=== PATIENT | female | born 1990 | race Caucasian/White ===

== ENCOUNTER 2019-09-01 13:49 | Inpatient (IN) | payer OTHER ==
[2019-09-01] MEDS ORDERED: CARBOPROST TROMETHAMINE 250 MCG/ML 1 ML AMP IM PRN (14:09)
[2019-09-01] MEDS ORDERED: OXYTOCIN 10 UNIT/ML 1 ML VIAL IM PRN (14:09)
[2019-09-01] MEDS ORDERED: LIDOCAINE 0.5% (PF) 5 MG/ML (50 ML SDV) SQ PRN (14:09)
[2019-09-01] MEDS ORDERED: METHYLERGONOVINE 0.2 MG/ML 1 ML AMP IM PRN (14:09)
[2019-09-01] MEDS ORDERED: TERBUTALINE 1 MG/ML VIAL SQ PRN (14:09)
[2019-09-01] MEDS ORDERED: OXYTOCIN 30 UNITS/500 ML NS 30 UNIT in SALINE 1 500ML.BAG IV SCH (14:15)
[2019-09-01] MEDS: LACTATED RINGERS 1,000 ML IV SCH ×3 (14:26→21:35)
[2019-09-01 14:32] LABS: Basophils % (A) 0 %; Eosinophils # (A) 0.1 k/uL (0-0.7); Eosinophils % (A) 1 %; HCT 34.9 % (34.0-46.0); HGB 11.6 gm/dL (11.4-16.0); Lymphocytes # (A) 1.5 k/uL (1.0-4.8); Lymphocytes % (A) 22 %; MCH 29.5 pg (25.0-35.0); MCHC 33.3 g/dL (31.0-37.0); MCV 88.6 fL (80.0-100.0); Mean Platelet Volume 9.1; Monocytes # (A) 0.5 k/uL (0-1.0); Monocytes % (A) 7 %; Neutrophils # (A) 4.5 k/uL (1.3-7.7); Neutrophils % (A) 67 %; Platelet Count 193 k/uL (150-450); RBC 3.94 m/uL (3.80-5.40); RDW 13.8 % (11.5-15.5); WBC 6.7 k/uL (3.8-10.6)
[2019-09-01 14:35] LABS: Appearance,Urine Clear (Clear); Bilirubin,Urine Negative (Negative); Blood,Urine Small (Negative); Color,Urine Light Yellow; Glucose,Urine (UA) Negative (Negative); Ketones,Urine Negative (Negative); Leukocyte Esterase,Urine Negative (Negative); Nitrite,Urine Negative (Negative); Protein,Urine Negative (Negative); RBC,Urine 3 /hpf (0-5); Specific Gravity,Urine 1.004 (1.001-1.035); Squamous Epithelial Cell,Urine 1 /hpf (0-4); Urobilinogen,Urine <2.0 mg/dL (<2.0); WBC,Urine <1 /hpf (0-5)
[2019-09-01 14:39] LABS: ALT 10 U/L (4-34); AST 22 U/L (14-36); African American GFR (CKD) >90 (>60 ml/min/1.73 sqM); Blood Urea Nitrogen 8 mg/dL (7-17); LDH 419 U/L (313-618); Non-African American GFR(CKD) >90 (>60 ml/min/1.73 sqM); Uric Acid 4.5 mg/dL (3.7-7.4)
[2019-09-01 14:43] LABS: INR 0.9 (<1.2); Partial Thromboplastin Time 22.3 sec (22.0-30.0); Prothrombin Time 9.3 sec (9.0-12.0)
[2019-09-01 14:47] LABS: Protein/Creatinine Ratio,Urine 0.628
[2019-09-01] MEDS ORDERED: BUTORPHANOL 1 MG/ML 1 ML VIAL IV PRN (16:26)
--- NOTE | 2019-09-01 16:29 | P.HPOB ---
History of Present Illness H&P Date: 09/01/19 Chief Complaint: Elevated blood pressures at 38-5/7 weeks This is a 28-year-old 2 para 1001 woman with an estimated due date of 09/10/2019 based on LMP consistent with first trimester ultrasound. She presented for routine visit today and was found to have blood pressure of 150/90, repeat 150/80. She has been experiencing significant increase in lower extremity swelling over the last 2 weeks however previously her blood pressures were normal. She also reports mild headache over the last 24 hours, decreased appetite and nausea. For this reason she is admitted for induction of labor and rule out preeclampsia. She denies headaches or visual changes. Denies upper abdominal pain or reflux. Good movement. Irregular contractions. Denies vaginal bleeding or leakage of fluids. has been otherwise unremarkable. She has a history of hypothyroidism and B12 deficiency. She has sciatic pain. Obstetric history significant for term normal spontaneous vaginal delivery in 2010 of a 7 lbs. 7 oz. female Laboratory data: Blood type O positive, antibody screen negative, rubella immune, VDRL nonreactive, hep Jennifer surface antigen negative, HIV negative, gonorrhea clinic cultures negative, 3 hour glucose tolerance testing within norm al limits, group B strep negative. Review of Systems All systems: negative Past Medical History Past Medical History: Thyroid Disorder Additional Past Medical History / Comment(s): Hypothyroid History of Any Multi-Drug Resistant Organisms: None Reported Additional Past Surgical History / Comment(s): wisdome teeth removed, no complications Past Anesthesia/Blood Transfusion Reactions: No Reported Reaction Past Psychological History: Anxiety Additional Psychological History / Comment(s): no meds Smoking Status: Never smoker - Past Family History Mother Family Medical History: Thyroid Disorder Father Family Medical History: Hypertension Medications and Allergies Home Medications Medication Instructions Recorded Confirmed Type Pnv No.95/Ferrous Fum/Folic AC 1 each PO DAILY 09/01/19 09/01/19 History [ Multivitamin Tablet] Thyroid,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 HEENT exam is unremarkable. Her breathing is unlabored and her heart is a regular rate and rhythm. The abdomen is gravid, soft and nontender with estimated weight of approximatey 8 pounds. She has 3+ bilateral lower extremity pitting edema. Deep tendon reflexes in the office were 2+ with no clonus. On pelvic examination her cervix is 3-1/2 cm dilated, 60% effaced and the vertex in the -3 station. Artificial rupture of membranes is undertaken and copious clear fluid is noted. Results Result Diagrams: 09/01/19 14:10 09/01/19 14:10 Abnormal Lab Results - Last 24 Hours (Table) 09/01/19 09/01/19 Range/Units 14:10 14:10 Creatinine 0.44 L (0.52-1.04) mg/dL Urine Blood Small H (Negative) Assessment and Plan (1) Term Current Visit: Yes Status: Acute Code(s): Z34.90 - ENCNTR FOR SUPRVSN OF NORMAL , UNSP, UNSP TRIMESTER SNOMED Code(s): 59691754 (2) induced hypertension Current Visit: Yes Status: Acute Code(s): O13.9 - GESTATIONAL HTN W/O SIGNIFICANT PROTEINURIA, UNSP TRIMESTER SNOMED Code(s): 95306974 (3) Hypothyroid in , antepartum Current Visit: Yes Status: Acute Code(s): O99.280 - ENDO, NUTRITIONAL AND METAB DISEASES COMP PREG, UNSP TRI; E03.9 - HYPOTHYROIDISM, UNSPECIFIED SNOMED Code(s): 445914731 Plan: This is 28-year-old 2 para 1 woman admitted at 38-5/7 weeks gestation with elevated blood pressures. On admission her blood pressures on are somewhat improved, 130s over 80s. Preeclampsia labs are all within normal limits. status is currently reassuring with category 1 heart tones. She is rodney every 2-3 minutes with Pitocin induction of labor. She is group B strep negative and Rh+. I anticipate normal spontaneous vaginal delivery. She may have an epidural anesthetic upon request.
[2019-09-01] MEDS ORDERED: SODIUM CHLORIDE 0.9% 100 ML BAG ONE (20:59)
[2019-09-01] MEDS ORDERED: fentaNYL (PF) 50 MCG/ML 5 ML AMP ONE (20:59)
[2019-09-01] MEDS ORDERED: ROPIVACAINE 5MG/ML 20ML VIAL ONE (20:59)
[2019-09-01] MEDS ORDERED: ZOLPIDEM 5 MG TAB PO PRN (23:37)
[2019-09-01] MEDS ORDERED: BENZOCAINE/MENTHOL SPRAY 1 GM/SPRAY AEROSOL TOPICAL PRN (23:37)
[2019-09-01] MEDS ORDERED: LANOLIN CREAM 5 GM TUBE TOPICAL PRN (23:37)
[2019-09-01] MEDS ORDERED: ACETAMINOPHEN TAB 325 MG TAB PO PRN (23:37)
[2019-09-01] MEDS ORDERED: SIMETHICONE 80 MG CHEWABLE PO PRN (23:37)
[2019-09-01] MEDS ORDERED: diphenhydrAMINE 50 MG CAP PO PRN (23:37)
[2019-09-01] MEDS ORDERED: diphenhydrAMINE 50 MG/ML 1 ML VIAL IVP PRN ×2 (23:37)
[2019-09-01] MEDS ORDERED: HYDROCORTISONE 2.5% RECTAL CREAM 30 GM TUBE RECTAL PRN (23:37)
[2019-09-01] MEDS ORDERED: diphenhydrAMINE 25 MG CAP PO PRN (23:37)
--- NOTE | 2019-09-01 23:37 | P.PROBDLV ---
Vaginal Delivery Note - . Vaginal Delivery Note: Findings: Female in the vertex left occiput anterior position with Apgars of 9 at 1 minute and 9 at 5 minutes weighing 6 lbs. 8 oz., 2955 g. Nuchal cord 2. First-degree perineal laceration. EBL 200 mL's. Delivery summary: This is a 28-year-old 2 para 1 woman who is admitted at 38-5/7 weeks gestation with elevated blood pressures in the outpatient setting. Following admission she underwent preeclamptic evaluation and laboratory data was all on negative. She underwent a Pitocin induction of labor with artificial rupture of membranes. She was 3 cm dilated upon admission she progressed to 6 cm dilated and received an epidural anesthetic. She then progressed to complete cervical dilation after an approximately 9 hour first stage of labor. She commenced pushing with excellent maternal effort. She pushed to very rapidly and was repositioned, prepped and draped in the modified Juan M position. With additional maternal effort the head delivered from the left occiput anterior position. Tight nuchal cord 2 was unable to be reduced therefore the was delivered through and the nuchal cords were then reduced once the infant was delivered onto the field. The nose and mouth were bulb suctioned and the was placed on the maternal abdomen. After waiting appropriate. Of time the cord was clamped and cut. Apgars were 9 at 1 minute and 9 at 5 minutes and weight was 6 lbs. 8 oz., 2955 g. An intact, three-vessel cord placenta was expressed rapidly after delivery. Second stage of labor was approximate 7 minutes, third stage of labor was 4 minutes. The perineum was inspected and a first-degree laceration was noted. This was infused with lidocaine and repaired with a single [id number] suture of 3-0 Vicryl. The rest of the vagina and cervix were inspected no further lacerations were noted. The uterus was massaged and was noted to be firm. The patient received Pitocin following the third stage of labor. EBL was 200 mL's. Both mother and infant were doing well post delivery in the room. All counts were correct.
[2019-09-01] MEDS ORDERED: OXYTOCIN 20 UNITS/1000 ML NS 1,000 ML IV SCH (23:45)
[2019-09-02] MEDS: IBUPROFEN 600 MG TAB PO PRN ×4 (01:13→20:13)
[2019-09-02 06:12] LABS: Basophils % (A) 0 %; Eosinophils % (A) 0 %; HCT 28.5 % (34.0-46.0); Lymphocytes # (A) 1.6 k/uL (1.0-4.8); Lymphocytes % (A) 12 %; MCH 31.2 pg (25.0-35.0); MCHC 34.6 g/dL (31.0-37.0); Monocytes # (A) 0.8 k/uL (0-1.0); Monocytes % (A) 6 %; Neutrophils # (A) 10.6 k/uL (1.3-7.7); Neutrophils % (A) 80 %; Platelet Count 191 k/uL (150-450); RBC 3.16 m/uL (3.80-5.40); WBC 13.3 k/uL (3.8-10.6)
[2019-09-02 06:23] LABS: HGB 9.9 gm/dL (11.4-16.0)
[2019-09-02] MEDS: SENNOSIDES-DOCUSATE SODIUM 1 EACH TAB PO SCH ×2 (08:01→20:14)
--- NOTE | 2019-09-02 10:27 | P.PNOBGVD ---
Subjective - Subjective Principal diagnosis: day 1/2 Interval history: Status post approximately 12 hours ago. She is feeling well this morning. She did have some excessive lochia per the RN on throughout the night. Her uterus did remain firm. She received Pitocin intravenously as well as a single dose of IM Methergine. Hemoglobin this morning is 9.9. She reports she is feeling well and is ambulating and voiding without difficulty. She reports a history of excessive vaginal bleeding for the first day after her last vaginal delivery approximate 10 years ago. Patient reports: Reports appetite normal, Reports voiding normally, Reports pain well controlled, Reports ambulating normally, Denies dizzy ambulation, Denies nauseated : doing well, nursing well Objective - Latest Vital Signs Latest vital signs: Vital Signs Temp Pulse Resp BP Pulse Ox 09/02/19 08:00 98.5 F 99 18 129/84 96 09/02/19 03:55 97.9 F 88 16 147/80 98 09/02/19 01:30 97.6 F 98 18 126/77 09/02/19 01:00 97.1 F L 107 H 16 128/76 09/02/19 00:30 95 16 127/61 09/02/19 00:15 96 16 131/60 09/02/19 00:00 97.8 F 96 16 143/63 09/01/19 23:45 96 16 117/66 09/01/19 23:30 97.1 F L 90 16 112/59 98 09/01/19 14:00 98.2 F 115 H 18 136/85 Intake and Output 09/01/19 09/02/19 09/02/19 22:59 06:59 14:59 Intake Total 300 450 Output Total 100 Balance 300 350 Intake: IV 300 250 Oral 200 Output: Urine 100 Other: # Voids 2 - Exam Extremities: Present: edema (3+) Abdomen: Present: normal appearance, soft. Absent: distention, tenderness Uterus: Present: normal, firm. Absent: bogginess, tenderness Comments: Peripad half saturated with dark red blood. No clots expressed with fundal massage. Uterus palpates firm 2 fingerbreadths below the umbilicus. - Labs Labs: Abnormal Lab Results - Last 24 Hours (Table) 09/01/19 09/01/19 09/02/19 Range/Units 14:10 14:10 05:46 WBC 13.3 H (3.8-10.6) k/uL RBC 3.16 L (3.80-5.40) m/uL Hgb 9.9 L D (11.4-16.0) gm/dL Hct 28.5 L (34.0-46.0) % Neutrophils # 10.6 H (1.3-7.7) k/uL Creatinine 0.44 L (0.52-1.04) mg/dL Urine Blood Small H (Negative) Assessment and Plan (1) Term Current Visit: Yes Status: Acute Code(s): Z34.90 - ENCNTR FOR SUPRVSN OF NORMAL , UNSP, UNSP TRIMESTER SNOMED Code(s): 68023439 (2) induced hypertension Current Visit: Yes Status: Acute Code(s): O13.9 - GESTATIONAL HTN W/O SIGNIF ICANT PROTEINURIA, UNSP TRIMESTER SNOMED Code(s): 48666321 (3) Hypothyroid in , antepartum Current Visit: Yes Status: Acute Code(s): O99.280 - ENDO, NUTRITIONAL AND METAB DISEASES COMP PREG, UNSP TRI; E03.9 - HYPOTHYROIDISM, UNSPECIFIED SNOMED Code(s): 318893242 (4) Normal spontaneous vaginal delivery Current Visit: Yes Status: Acute Code(s): O80 - ENCOUNTER FOR FULL-TERM UNCOMPLICATED DELIVERY SNOMED Code(s): 91841077 (5) Nuchal cord Current Visit: Yes Status: Acute Code(s): O69.81X0 - LABOR AND DEL COMP BY CORD AROUND NECK, W/O COMPRSN, UNSP SNOMED Code(s): 373845357 (6) Perineal laceration with delivery, first degree Current Visit: Yes Status: Acute Code(s): O70.0 - FIRST DEGREE PERINEAL LACERATION DURING DELIVERY SNOMED Code(s): 367259596 Plan: day1/2 status post . Recovering well. She is having some heavy lochia however is asymptomatic. By mouth Methergine today and repeat blood counts tomorrow.
[2019-09-02] MEDS: METHYLERGONOVINE 0.2 MG TAB PO SCH ×2 (14:48→22:06)
[2019-09-03 07:56] VITALS: BP 132/86; PULSE 107; RESP 18; TEMP 97.9
--- NOTE | 2019-09-03 08:00 | P.DS ---
Providers Date of admission: 09/01/19 13:49 Expected date of discharge: 09/03/19 Attending physician: Gloria Hunter Primary care physician: Stated None - Discharge Diagnosis(es) (1) Term Current Visit: Yes Status: Acute (2) induced hypertension Current Visit: Yes Status: Acute (3) Hypothyroid in , antepartum Current Visit: Yes Status: Acute (4) Normal spontaneous vaginal delivery Current Visit: Yes Status: Acute (5) Nuchal cord Current Visit: Yes Status: Acute (6) Perineal laceration with delivery, first degree Current Visit: Yes Status: Acute Hospital Course: This is a 28 year old 2 now para 2 woman who is admitted at 38-5/7 weeks gestation for induction of labor secondary to elevated blood pressures. She had a negative preeclamptic workup. She was admitted and underwent a Pitocin induction of labor with artificial rupture of membranes. She received an epidural anesthetic. She went on to have a rapid delivery of a 6 lbs. 8 oz. female with Apgars of 9 at 1 minute and 9 at 5 minutes. Her blood pressures are stable throughout her labor. Her course was marked by some heavier lochia. She was given by mouth Methergine to 8 hours 3 with excellent resolution of her bleeding. day #1 hemoglobin was 9.9. By day #2 she was ambulating and voiding without difficulty. Her blood pressures were within normal limits. Her lochia was minimal. Her perineum was well healing. She was struggling somewhat with breast-feeding and senior clinical consultant was working with her. She was discharged home with routine instruct ions for care and follow-up. 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 Call with any concerning signs or symptoms including heavy vaginal bleeding, severe abdominal pain, fever greater than 101, swelling or redness of the lower extremities, foul vaginal discharge, or signs of depression. Nothing in the vagina for 6 weeks after delivery, specifically no intercourse. May use [id number] Tylenol and/or ibuprofen as needed for pain. Discharge Disposition: HOME SELF-CARE
[2019-09-03] MEDS: SENNOSIDES-DOCUSATE SODIUM 1 EACH TAB PO SCH (08:09)
[2019-09-03] MEDS: METHYLERGONOVINE 0.2 MG TAB PO SCH (09:23)
== END 2019-09-03 10:45 | disposition home or self-care (01) | DRG 807 ==
LOC: 4FBP 13:49
PROVIDERS: ADMIT Obstetrics & Gynecology; ATTEND Obstetrics & Gynecology
PROC: 0HQ9XZZ Repair Perineum Skin, External Approach (ICD-10-PCS; principal; 2019-09-01)
PROC: 10E0XZZ Delivery of Products of Conception, External Approach (ICD-10-PCS; principal; 2019-09-01)
DX: O13.4 Gestational [pregnancy-induced] hypertension without significant proteinuria, complicating childbirth (principal); Z37.0 Single live birth; E03.9 Hypothyroidism, unspecified; F41.9 Anxiety disorder, unspecified; M54.30 Sciatica, unspecified side; O62.3 Precipitate labor; O69.1XX0 Labor and delivery complicated by cord around neck, with compression, not applicable or unspecified; O70.0 First degree perineal laceration during delivery; O99.284 Endocrine, nutritional and metabolic diseases complicating childbirth; O99.344 Other mental disorders complicating childbirth; O12.14 Gestational proteinuria, complicating childbirth; Z3A.38 38 weeks gestation of pregnancy; Z82.49 Family history of ischemic heart disease and other diseases of the circulatory system
CPT/HCPCS: 81001; 82565; 82570; 83615; 84156; 84450; 84460; 84520; 84550; 85025; 85610; 85730; 86850; 86900; 86901